=== PATIENT | female | born 1950 | race Caucasian/White ===

== ENCOUNTER → 2020-09-28 14:09 | Outpatient (CLI) | payer MEDICARE, OTHER, SELFPAY ==
[2020-09-28] MEDS: COVID-19 VACC #1, MRNA(MOD) 100 MCG/0.5 ML VIAL IM (14:31)
== END ==
PROVIDERS: Visit Provider Internal Medicine
DX: Z23 Encounter for immunization (principal)
CPT/HCPCS: 0011A; 91301

== ENCOUNTER → 2020-10-27 14:13 | Outpatient (CLI) | payer MEDICARE, OTHER, SELFPAY ==
[2020-10-27] MEDS: COVID-19 VACC #2, MRNA(MOD) 100 MCG/0.5 ML VIAL IM (14:20)
== END ==
PROVIDERS: Visit Provider Internal Medicine
DX: Z23 Encounter for immunization (principal)
CPT/HCPCS: 0012A; 91301